=== PATIENT | male | born 1970 | race American Indian/Alaskan Native ===

== ENCOUNTER 2019-01-03 16:45 | Emergency (ER) | payer MEDICARE, MEDICAID ==
[2019-01-03 16:53] VITALS: BMI 31.4
[2019-01-03] MEDS ORDERED: Sodium Chloride 0.9% 1,000 ML IV ONE (17:09)
--- NOTE | 2019-01-03 17:18 | C.PDOC ---
History Of Present Illness 48 year old male presents to ED with complaint of abdominal pain since last night. Patient has also been experiencing nausea and diarrhea since last night. Patient describes the diarrhea as watery and the vomit as non-bloody. Patient describes the pain as a generalized cramping. Patient also complains of left- sided chest pain since this morning and describes the pain as intermittent and dull. Patient denies fever, chills, and shortness of breath. HE RAN OUT OF PAIN MEDICATIONS AND STOPED IT ABPRUPTLY Time Seen by Provider: 01/03/19 16:59 Chief Complaint (Nursing): Chest Pain History Per: Patient History/Exam Limitations: no limitations Onset/Duration Of Symptoms: Days (1) Current Symptoms Are (Timing): Still Present Severity: None Quality: "Pain", Other (cramping) Modifying Factors: None Exacerbating Factors: None Alleviating Factors: None Recent travel outside of the [place]: No Past Medical History Reviewed: Historical Data, Nursing Documentation, Vital Signs - Medical History PMH: HTN Surgical History: No Surg Hx - [facility] Procedures ANESTH INJECT-SPIN CANAL (05/25/13) INJECT STEROID (09/07/13) SPINAL CANAL INJECT NEC (09/07/13) Family History: States: Unknown Family Hx - Social History Hx Tobacco Use: Yes Hx Alcohol Use: Yes Hx Substance Use: No - Immunization History Hx Tetanus Toxoid Vaccination: No Hx Influenza Vaccination: No Hx Pneumococcal Vaccination: No Review Of Systems Constitutional: Negative for: Fever, Chills, Weakness Cardiovascular: Positive for: Chest Pain. Negative for: Palpitations Respiratory: Negative for: Shortness of Breath Gastrointestinal: Positive for: Nausea, Abdominal Pain, Diarrhea Genitourinary: Negative for: Dysuria, Hematuria Neurological: Negative for: Weakness, Numbness, Dizziness Physical Exam - Physical Exam Appears: Non-toxic, No Acute Distress Skin: Normal Color, Warm, Dry Head: Atraumatic, Normacephalic Neck: Normal ROM, Supple Chest: Symmetrical, No Deformity Cardiovascular: Rhythm Regular, No Murmur Respiratory: No Accessory Muscle Use Gastrointestinal/Abdominal: Tenderness (diffuse), Guarding (mild), No Rebound Neurological/Psych: Oriented x3, Normal Speech, Normal Cognition ED Course And Treatment - Laboratory Results Result Diagrams: 01/03/19 17:45 01/03/19 17:45 ECG: Interpreted By Me, Viewed By Me ECG Rhythm: Sinus Rhythm ECG Interpretation: Normal Interpretation Of ECG: Non-specific ST abnormalities. Rate From EC Medical Decision Making Medical Decision Making: Impression: 48 year old male with abdominal pain. Plan: EKG and CXR ordered for patient. Labs ordered with UA and urine culture. Patient given Morphine IVP, Pepcide IVP, IV fluids, and Zofran PO. Progress: Patient's pain and vomiting has resolved. All symptoms presented were most likely due to opioid withdrawal. Abruptly stopped patient's medications. Disposition Counseled Patient/Family Regarding: Studies Performed, Diagnosis, Need For Followup, Rx Given - Disposition Referrals: Sabrina Suarez MD [Staff Provider] - Disposition: HOME/ ROUTINE Disposition Time: 18:43 Condition: STABLE Prescriptions: Ondansetron ODT [Zofran ODT] 4 mg PO TID #20 odt oxyCODONE/Acetaminophen [Percocet 5/325 mg Tab] 1 ea PO TID #12 tab Instructions: Chest Pain That Is Not Caused by the Heart (DC), Nausea and Vomiting, Adult Forms: [email or web address] (Welsh) - Clinical Impression Clinical Impression: Abdominal pain, Chest pain, Nausea & vomiting - Scribe Statement The provider has reviewed the documentation as recorded by the Scribe (Cristal Williamson) All medical record entries made by the Scribe were at my direction and personally dictated by me. I have reviewed the chart and agree that the record accurately reflects my personal performance of the history, physical exam, medical decision making, and the department course for this patient. I have also personally directed, reviewed, and agree with the discharge instructions and disposition.
[2019-01-03] MEDS ORDERED: Morphine 4 MG/ML VIAL ONE (17:45)
[2019-01-03 17:50] LABS: BASO # 0.1 K/uL (0.0-0.2); BASO % 0.6 % (0.0-2.0); EOS % 0.1 % (0.0-4.0); HEMOGLOBIN 15.7 g/dL (12.0-18.0); LYMPH # 1.7 K/uL (1.0-4.3); LYMPH % 19.3 % (20.0-40.0); MEAN CORPUSCULAR HEMOGLOBIN 33.3 pg (27.0-31.0); MEAN CORPUSCULAR HGB CONC 32.9 g/dL (33.0-37.0); MEAN PLATELET VOLUME 9.6 fL (7.2-11.7); MONO # 0.3 K/uL (0.0-0.8); MONO % 3.8 % (0.0-10.0); NEUT # 6.7 K/uL (1.8-7.0); NEUT % 76.2 % (50.0-75.0); NRBC % 0.1 % (0.0-2.0); RBC 4.72 Mil/uL (4.40-5.90); RED CELL DISTRIBUTION WIDTH 13.6 % (11.5-14.5); WHITE BLOOD COUNT 8.7 K/uL (4.8-10.8)
[2019-01-03 18:02] LABS: ALB/GLOB RATIO 1.1 (1.0-2.1); ALBUMIN 5.7 g/dL (3.5-5.0); ALT/SGPT 21 U/L (21-72); AST/SGOT 40 U/L (17-59); BLOOD UREA NITROGEN 11 mg/dL (9-20); CALCIUM 11.2 mg/dl (8.6-10.4); GFR NON-AFRICAN AMERICAN 40; LIPASE 108 U/L (23-300)
[2019-01-03 18:52] VITALS: BP 119/75; PULSE 87; RESP 18; TEMP 98; O2SAT 96
--- NOTE | 2019-01-04 13:34 | RAD ---
Date of service: 01/03/2019 PROCEDURE: CHEST RADIOGRAPH, 1 VIEW HISTORY: abd pain COMPARISON: None available. FINDINGS: LUNGS: The lungs are well inflated and clear. PLEURA: No pneumothorax or pleural effusion. CARDIOVASCULAR: The heart is normal in size. No aortic atherosclerotic calcifications present. OSSEOUS STRUCTURES: Within normal limits for the patient's age. There are postsurgical changes of anterior and posterior spinal fixation in the lower cervical spine. VISUALIZED UPPER ABDOMEN: Normal. OTHER FINDINGS: None. IMPRESSION: No active pulmonary disease.
--- NOTE | 2019-01-04 19:20 | CARD ---
APPROVED REPORT Date of service: 01/03/2019 EKG Measurement Heart [id number] <Conclusion> Normal sinus rhythm Normal ECG
== END 2019-01-03 18:53 | disposition home or self-care (01) ==
LOC: C.ER 16:45
DX: R07.9 Chest pain, unspecified (principal); R11.2 Nausea with vomiting, unspecified; R10.9 Unspecified abdominal pain
CPT/HCPCS: 71045; 80053; 83690; 84484; 85025; 93005; 96374; 96375; 99284; J2060; J2270; J7030